=== PATIENT | male | born 1975 | race Caucasian/White ===

== ENCOUNTER 2018-01-31 09:28 | Emergency (ER) | payer OTHER, SELFPAY ==
[2018-01-31] MEDS ORDERED: ADMIXTURE FEE IVPB SCH (10:00)
[2018-01-31] MEDS ORDERED: FOSPHENYTOIN SODIUM IVPB SCH (10:00)
[2018-01-31] MEDS ORDERED: SODIUM CHLORIDE IVPB SCH (10:00)
[2018-01-31] MEDS ORDERED: Adacel (T-DAP) 0.5 ML VIAL ONE (10:13)
--- NOTE | 2018-01-31 10:37 | CT ---
HEAD CT NONCONTRAST: Indication: Post-traumatic head pain injury, fall. FINDINGS: No intracranial hemorrhage, mass effect, midline shift of ventriculomegaly. There is no acute depress ed calvarial fracture or pneumocephalus. Imaged paranasal sinuses and mastoid air cells are clear. IMPRESSION: No acute intracranial hemorrhage or mass effect. POS: [facility]
[2018-01-31] MEDS ORDERED: Lidocaine 1% w/Epinephrine 1:100K 20 ML VIAL ONE (10:40)
--- NOTE | 2018-01-31 10:42 | RAD ---
TWO VIEWS LUMBAR SPINE: Date: 01-31-18 History: Trauma, pain. FINDINGS: There are five lumbar type vertebral bodies with intact pedicles on frontal imaging. There is mild lateral osteophyte formation on the right at L2-3. There is no anterolisthesis or retro listhesis seen. No displaced fracture is noted. There is mild anterior osteophyte formation at L2-3, L3-4, L4-5 and L5-S1. IMPRESSION: Degenerative change. No acute fracture. POS: [facility]
--- NOTE | 2018-01-31 10:43 | CT ---
CERVICAL SPINE CT NONCONTRAST. CLINICAL HISTORY: Posttraumatic neck pain, fall. FINDINGS: The craniocervical junction is intact. There is moderate multilevel degenerative change throughout t he cervical spine. No acute compression fracture or significant subluxation. No evidence of acute f acet malalignment. Heterotopic bone is seen within the posterior paraspinous region. IMPRESSION: Moderate degenerative change throughout cervical spine, without acute fracture or significant subluxa tion. POS: [facility]
--- NOTE | 2018-01-31 10:45 | RAD ---
FRONTAL AND LATERAL IMAGING OF THE THORACIC SPINE: Date: 01-31-18 Comparison: None. History: Fall, pain. FINDINGS: Frontal radiograph demonstrates intact thoracic pedicles. Lateral exam demonstrates normal vertebral body height and alignment. No displaced fracture is seen. There are degenerative changes within the c ervical spine, incompletely assessed. IMPRESSION: No displaced thoracic spine fracture. POS: [facility]
[2018-01-31 10:51] LABS: #Basophils 0.1 thou/uL (0.0-0.2); #Eosinphils 0.1 thou/uL (0.0-0.7); #Lymphocytes 2.3 thou/uL (1.20-3.40); #Monocytes 0.8 thou/uL (0.11-0.59); %Basophils 0.8 % (0.0-1.0); %Eosinophils 1.1 % (0.0-10.0); %Lymphocytes 27.9 % (21.0-51.0); %Monocytes 9.3 % (0.0-10.0); %Neutrophils 60.9 % (42.0-75.0); Hemoglobin 16.7 g/dL (14.0-18.0); Mean Corpuscular HGB CONC 32.4 g/dL (32.0-36.0); Mean Corpuscular Hemoglobin 32.8 pg (27.0-31.0); Mean Platelet Volume 6.6 fL (7.4-10.4); Platelet Count 266 thou/uL (130-400); RBC Distribution Width 12.3 % (11.5-14.5); Red Blood Cell (RBC) Count 5.08 mill/uL (4.70-6.10); White Blood Cell (WBC) Count 8.1 thou/uL (4.8-10.8)
--- NOTE | 2018-01-31 11:05 | CT ---
CT OF THE FACIAL BONES: DATE: 01/31/18. COMPARISON: None. HISTORY: Fall, laceration, and seizure. TECHNIQUE: Serial axial CT imaging at 2.5 mm intervals through the facial bones without contrast. Coronal and s agittal reformatted imaging obtained. FINDINGS: Imaged intracranial contents are grossly unremarkable, better evaluated on dedicated head CT. There is mild soft tissue swelling in the paranasal region anteriorly and to the right of midline. The frontal sinuses, maxillary sinuses, ethmoid air cells, and sphenoid sinuses are well aerated. Ma stoid air cells are well aerated. The nasal bones, zygomatic arches, and pterygoid plates are intact. The temporomandibular joints are normally located. No mandibular fracture is seen. Numerous missing mandibular teeth are noted. There is a periapical abscess associated with the right mandibular bicuspid. No maxillary fracture is noted. The orbital floor and the medial orbital wall appear intact bilatera lly. There is degenerative change noted at the atlantoaxial interspace. There are numerous missing maxillary teeth as well. IMPRESSION: No evidence for a fracture or dislocation. POS: [facility]
[2018-01-31 11:15] LABS: ALT (SGPT) 199 U/L (8-55); AST (SGOT) 109 U/L (5-34); Albumin 4.1 g/dL (3.5-5.0); Alkaline Phosphatase 52 U/L (40-150); Anion Gap 9 mmol/L (10-20); BUN (Urea Nitrogen) 14 mg/dL (8.9-20.6); Bilirubin, Total 0.7 mg/dL (0.2-1.2); Calc. Creatinine Clearance 0 mL/min (70-130); Calcium 10.2 mg/dL (7.8-10.44); Carbon Dioxide 29 mmol/L (22-29); Chloride 100 mmol/L (98-107); Estimated GFR-MDRD 90; Glucose 92 mg/dL (70-105); Potassium 4.6 mmol/L (3.5-5.1); Protein, Total 9.1 g/dL (6.0-8.3); Sodium 133 mmol/L (136-145)
[2018-01-31] MEDS ORDERED: Bacitracin Zinc 1 Packet ONE (12:03)
== END 2018-01-31 12:35 ==
LOC: ERS 09:28
DX: S01.111A Laceration without foreign body of right eyelid and periocular area, initial encounter (principal); S01.81XA Laceration without foreign body of other part of head, initial encounter; M54.5 Low back pain; F17.210 Nicotine dependence, cigarettes, uncomplicated; W20.8XXA Other cause of strike by thrown, projected or falling object, initial encounter
CPT/HCPCS: 12014; 70450; 70486; 72070; 72100; 72125; 80053; 84146; 85025; 90471; 90715; J2001; J7050; Q2009

== ENCOUNTER 2018-10-07 05:13 | Emergency (ER) | payer OTHER, SELFPAY ==
[2018-10-07 05:41] LABS: #Basophils 0.1 thou/uL (0.0-0.2); #Eosinphils 0.1 thou/uL (0.0-0.7); #Lymphocytes 2.9 thou/uL (1.20-3.40); #Monocytes 0.6 thou/uL (0.11-0.59); #Neutrophils 3.2 thou/uL (1.40-6.50); %Basophils 1.8 % (0.0-1.0); %Eosinophils 2.1 % (0.0-10.0); %Lymphocytes 40.7 % (21.0-51.0); %Monocytes 9.2 % (0.0-10.0); %Neutrophils 46.3 % (42.0-75.0); Mean Corpuscular HGB CONC 32.1 g/dL (32.0-36.0); Mean Corpuscular Hemoglobin 32.8 pg (27.0-31.0); Mean Platelet Volume 6.9 fL (7.4-10.4); Platelet Count 246 thou/uL (130-400); RBC Distribution Width 11.6 % (11.5-14.5); Red Blood Cell (RBC) Count 4.28 mill/uL (4.70-6.10)
[2018-10-07 06:14] LABS: ALT (SGPT) 181 U/L (8-55); AST (SGOT) 93 U/L (5-34); Acetaminophen Less than 6.0 mcg/mL (10.0-30.0); Albumin 3.5 g/dL (3.5-5.0); Alcohol Less than 10 mg/dL (Less than 10); Alkaline Phosphatase 53 U/L (40-150); Anion Gap 11 mmol/L (10-20); BUN (Urea Nitrogen) 11 mg/dL (8.9-20.6); Bilirubin, Total 0.5 mg/dL (0.2-1.2); CK (CPK) 293 U/L (30-200); Calc. Creatinine Clearance 0 mL/min (70-130); Calcium 9.1 mg/dL (7.8-10.44); Carbon Dioxide 23 mmol/L (22-29); Chloride 106 mmol/L (98-107); Estimated GFR-MDRD Greater than 90; Globulin 4.7 g/dL (2.4-3.5); Glucose 92 mg/dL (70-105); Potassium 3.4 mmol/L (3.5-5.1); Protein, Total 8.2 g/dL (6.0-8.3); Salicylate Less than 8.0 mg/dL (15.0-30.0); Sodium 137 mmol/L (136-145)
[2018-10-07 06:18] LABS: CKMB 2.9 ng/mL (0-6.6); Troponin I Less than 0.010 ng/mL (< 0.028)
[2018-10-07 08:00] LABS: Bilirubin Small (Negative); Clarity CLEAR (Clear); Glucose, Urine (Dipstick) Negative (Negative); Leukocyte Negative (Negative); Nitrite Negative (Negative); Protein, Urine (Dipstick) 100 mg/dL (Neg-Trace); Specific Gravity, Urine 1.032 (1.002-1.036)
[2018-10-07 08:03] LABS: Pathc Cast-AUWi Flag 1.74 (0-2.49); Squamous Epithelial 0-3 HPF (0-3); WBC/HPF 0-3 HPF (0-3)
[2018-10-07 08:21] LABS: Blood, Urine Trace (Negative)
[2018-10-07 08:24] LABS: Bacteria/HPF Rare-Few HPF (None Seen); Trichomonas/HPF None Seen HPF (None Seen); Yeast-All Forms None Seen HPF (None Seen)
[2018-10-07 08:47] LABS: Amphetamine Detected (NotDetected); Barbiturates Screen Not Detected (NotDetected); Benzodiazepine Screen Not Detected (NotDetected); Cocaine Metabolite Screen Not Detected (NotDetected); Medtox Control Line Valid? VALID (VALID); Medtox Reader # READER 4; Methadone Not Detected (NotDetected); Methamphetamine Detected (NotDetected); Opiate Screen Not Detected (NotDetected); Oxycodone Screen Not Detected (NotDetected); Phencyclidine (PCP) Not Detected (NotDetected); THC/Cannabinoid Screen Detected (NotDetected); Tricyclic Screen Not Detected (NotDetected)
== END 2018-10-07 08:53 ==
LOC: ERS 05:13
DX: F15.10 Other stimulant abuse, uncomplicated (principal); F17.210 Nicotine dependence, cigarettes, uncomplicated
CPT/HCPCS: 36415; 36416; 51701; 80053; 80306; 80307; 81003; 81015; 82553; 83605; 84484; 85025; 93005